=== PATIENT | male | born 1980 | race Two or more races ===

== ENCOUNTER 2024-03-23 08:27 | Outpatient (RCR) | payer MEDICAID, SELFPAY ==
--- NOTE | 2024-03-23 13:09 | CTCFLWUP_ITS ---
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 Oncologist was Anastasiya Melton MD reportedly stage Ia. Received 5040 centigray to the nasal cavity completed 01/27/2023 [facility] Received additional 4 cycles of chemo completed May 2023. Post chemo imaging study reportedly showing good response at [facility]. Scans performed there reportedly showed complete response. Patient being followed by ENT along with medical oncologist in [place]. Will attempt to get records and see him back in 6 months. Electronically signed by: Markos Yap M.D. 03/23/2024 1:06 PM
== END 2024-04-17 23:59 | disposition home or self-care (01) ==
LOC: SCTC 08:27
PROVIDERS: PCP Physician Assistant; Referring Provider Hospitalist; Visit Provider Radiology Therapeutic Radiology
DX: C86.00 Extranodal NK/T-cell lymphoma, nasal type not having achieved remission (principal); Z92.21 Personal history of antineoplastic chemotherapy; Z92.3 Personal history of irradiation
CPT/HCPCS: 99213; G0463